=== PATIENT | male | born 1960 | race African-American/Black ===

== ENCOUNTER 2021-01-27 12:50 | Emergency (ER) | payer OTHER ==
[~2021-01-27] VITALS: Ht 165.1 cm; Wt 78.2 kg
[2021-01-27 12:51] VITALS: BP 147/90
== END 2021-01-27 13:40 | disposition home or self-care (01) ==
LOC: EMS 12:55
DX: S89.91XD Unspecified injury of right lower leg, subsequent encounter (principal); F17.210 Nicotine dependence, cigarettes, uncomplicated; F12.90 Cannabis use, unspecified, uncomplicated; Z88.5 Allergy status to narcotic agent; X58.XXXD Exposure to other specified factors, subsequent encounter
CPT/HCPCS: 99281; Z7502